=== PATIENT | female | born 1980 | race Caucasian/White ===

== ENCOUNTER 2016-11-06 15:16 | Emergency (ER) | payer OTHER ==
[~2016-11-06] VITALS: Ht 162.6 cm; Wt 95.3 kg
[2016-11-06] MEDS ORDERED: NORT1TAB PO (15:38)
[2016-11-06] MEDS ORDERED: GLAT1INJ SQ (15:38)
[2016-11-06] MEDS ORDERED: TRAM50TA2 PO (15:38)
[2016-11-06] MEDS ORDERED: ZOLP10TA2 PO (15:38)
[2016-11-06] MEDS ORDERED: GABA-282 PO (15:38)
[2016-11-06] MEDS ORDERED: HYDR25T PO (15:38)
[2016-11-06] MEDS ORDERED: GABA600T PO (15:38)
[2016-11-06] MEDS ORDERED: VALA500T PO (15:38)
[2016-11-06] MEDS ORDERED: CYAN1000VL SQ (15:38)
[2016-11-06] MEDS ORDERED: ROPI0.5T PO (15:38)
[2016-11-06] MEDS ORDERED: NS 1,000 ML IV ONE ×2 (15:45→16:45)
[2016-11-06] MEDS ORDERED: ONDANSETRON 4MG/2ML VIAL (J2405) IV ONE (15:45)
[2016-11-06 16:01] LABS: BASO % 0.5 % (0.0-1.0); EOS # 0.1 K/mm3 (0.0-0.50); EOS % 0.9 % (0.0-3.0); LARGE UNSTAINED CELL # 0.1 K/mm3 (0.0-0.4); LYMPH # 2.8 K/mm3 (1.5-4.5); LYMPH % 25.2 % (24.0-44.0); MEAN CORPUSCULAR HEMOGLOBIN 30.3 pg (27.0-33.0); MEAN CORPUSCULAR HGB CONC 32.9 g/dl (32.0-36.5); MEAN CORPUSCULAR VOLUME 92.3 fl (80.0-96.0); MONO # 0.4 K/mm3 (0.0-0.8); MONO % 3.9 % (0.0-5.0); NEUTROPHILS # 7.5 K/mm3 (1.8-7.7); NEUTROPHILS % 68.4 % (36.0-66.0); PLATELET COUNT, AUTOMATED 360 k/mm3 (150-450); RED CELL DISTRIBUTION WIDTH 12.7 % (11.5-14.5); WHITE BLOOD COUNT 10.9 K/mm3 (4.0-10.0)
[2016-11-06 16:21] LABS: ALBUMIN 3.9 GM/DL (3.2-5.2); ALBUMIN/GLOBULIN RATIO 0.91 (1.00-1.93); ALKALINE PHOSPHATASE 76 U/L (45-117); ALT/SGPT 18 U/L (12-78); ANION GAP 6 MEQ/L (8-16); AST/SGOT 20 U/L (15-37); BILIRUBIN,DIRECT < 0.1 MG/DL (0.0-0.2); BILIRUBIN,TOTAL 0.2 MG/DL (0.2-1.0); BLOOD UREA NITROGEN 8 MG/DL (7-18); CALCIUM LEVEL 8.9 MG/DL (8.5-10.1); CARBON DIOXIDE LEVEL 27 MEQ/L (21-32); CHLORIDE LEVEL 106 MEQ/L (98-107); CREATININE FOR GFR 0.76 MG/DL (0.55-1.02); GLOMERULAR FILTRATION RATE > 60.0 (>60); GLUCOSE, FASTING 86 MG/DL (70-105); POTASSIUM SERUM 3.7 MEQ/L (3.5-5.1); SODIUM LEVEL 139 MEQ/L (136-145); TOTAL PROTEIN 8.2 GM/DL (6.4-8.2)
[2016-11-06] MEDS ORDERED: ZOFR4TAB3 PO (16:57)
[2016-11-06] MEDS ORDERED: METOCLOPRAMIDE INJ 10MG/2ML VIAL (J2765) IV ONE (17:00)
[2016-11-06] MEDS ORDERED: FAMOTIDINE 20 MG TAB PO ONE (17:45)
[2016-11-06] MEDS ORDERED: SUCRALFATE SUSP 1GM/10ML UD PO ONE (17:45)
[2016-11-06 18:26] VITALS: BP 121/70
== END 2016-11-06 18:31 | disposition home or self-care (01) ==
LOC: M ED 16:28
DX: R11.2 Nausea with vomiting, unspecified (principal); R19.7 Diarrhea, unspecified; G35 Multiple sclerosis; F41.9 Anxiety disorder, unspecified; Z79.899 Other long term (current) drug therapy; Z79.891 Long term (current) use of opiate analgesic; F17.210 Nicotine dependence, cigarettes, uncomplicated
CPT/HCPCS: 80048; 80076; 83690; 85025; 96374; 96375; 99283; J2405; J2765

== ENCOUNTER → 2016-11-17 | Outpatient (REF) | payer OTHER ==
[~2016-11-17] MED LIST: CYAN1000VL SQ; GABA-282 PO; GABA600T PO; GLAT1INJ SQ; HYDR25T PO; NORT1TAB PO; ROPI0.5T PO; TRAM50TA2 PO; VALA500T PO; ZOFR4TAB3 PO; ZOLP10TA2 PO
== END ==
LOC: M LABNEURO 12:50
PROVIDERS: ATTEND Psychiatry & Neurology Neurology
DX: E55.9 Vitamin D deficiency, unspecified (principal)

== ENCOUNTER → 2016-12-21 | Outpatient (CLI) | payer OTHER ==
--- NOTE | 2016-12-21 13:53 | REP ---
Chest two views HISTORY: Cough Comparison: None The lungs are clear. The heart is normal in size. The pulmonary vasculature is normal in appearance. The bony structure is intact. IMPRESSION: No acute disease. Signed by Vickey Parada MD 12/21/2016 01:45 P
== END ==
LOC: M WUC 12:06
PROVIDERS: ATTEND Physician Assistant
DX: R05 Cough (principal)

== ENCOUNTER → 2017-02-18 | Outpatient (REF) | payer OTHER ==
[~2017-02-18] MED LIST changes: +DULO1CAP2; +FERR1TAB8; +HYDR-3363 PO; -HYDR25T PO; +LORA10TA2; -VALA500T PO; +VALA500T2 PO
== END ==
LOC: M LABNEURO 12:31
PROVIDERS: ATTEND Psychiatry & Neurology Neurology
DX: E55.9 Vitamin D deficiency, unspecified (principal); E53.8 Deficiency of other specified B group vitamins

== ENCOUNTER → 2017-03-10 | Outpatient (REF) | payer OTHER ==
[2017-03-10 17:19] LABS: VITAMIN B12 LEVEL 294 PG/ML (247-911)
[2017-03-10 17:23] LABS: ALBUMIN 3.5 GM/DL (3.2-5.2); ALBUMIN/GLOBULIN RATIO 1.03 (1.00-1.93); ALKALINE PHOSPHATASE 94 U/L (45-117); ALT/SGPT 21 U/L (12-78); ANION GAP 7 MEQ/L (8-16); AST/SGOT 25 U/L (15-37); BILIRUBIN,TOTAL 0.5 MG/DL (0.2-1.0); BLOOD UREA NITROGEN 8 MG/DL (7-18); CALCIUM LEVEL 8.5 MG/DL (8.5-10.1); CARBON DIOXIDE LEVEL 28 MEQ/L (21-32); CHLORIDE LEVEL 107 MEQ/L (98-107); CREATININE FOR GFR 0.72 MG/DL (0.55-1.02); FERRITIN 48 NG/ML (8-252); FREE T4 0.93 NG/DL (0.76-1.46); GLOMERULAR FILTRATION RATE > 60.0 (>60); GLUCOSE, FASTING 73 MG/DL (70-105); PERCENT SATURATION 15.4 % (13.2-45.0); POTASSIUM SERUM 4.4 MEQ/L (3.5-5.1); SODIUM LEVEL 142 MEQ/L (136-145); TOTAL IRON BINDING CAPACITY 409 UG/DL (250-450); TOTAL PROTEIN 6.9 GM/DL (6.4-8.2)
[2017-03-10 17:30] LABS: BASO % 0.4 % (0.0-1.0); EOS # 0.2 K/mm3 (0.0-0.50); EOS % 1.6 % (0.0-3.0); LARGE UNSTAINED CELL # 0.1 K/mm3 (0.0-0.4); LARGE UNSTAINED CELL % 1.3 % (0.0-4.0); LYMPH # 2.7 K/mm3 (1.5-4.5); LYMPH % 28.9 % (24.0-44.0); MEAN CORPUSCULAR HEMOGLOBIN 32.2 pg (27.0-33.0); MEAN CORPUSCULAR HGB CONC 33.8 g/dl (32.0-36.5); MEAN CORPUSCULAR VOLUME 95.1 fl (80.0-96.0); MONO # 0.4 K/mm3 (0.0-0.8); MONO % 4.6 % (0.0-5.0); NEUTROPHILS # 5.9 K/mm3 (1.8-7.7); NEUTROPHILS % 63.2 % (36.0-66.0); PLATELET COUNT, AUTOMATED 308 k/mm3 (150-450); RED CELL DISTRIBUTION WIDTH 12.8 % (11.5-14.5); WHITE BLOOD COUNT 9.4 K/mm3 (4.0-10.0)
== END ==
LOC: M SFHCSACK 08:39
PROVIDERS: ATTEND Physician Assistant
DX: D64.9 Anemia, unspecified (principal); Z83.3 Family history of diabetes mellitus; F41.1 Generalized anxiety disorder; E55.9 Vitamin D deficiency, unspecified

== ENCOUNTER → 2017-08-18 | Outpatient (REF) | payer OTHER ==
[2017-08-18 14:29] LABS: BASO # 0.1 10^3/uL (0.0-0.2); BASO % 0.8 % (0.0-1.0); EOS # 0.1 10^3/uL (0.0-0.50); EOS % 0.7 % (0.0-3.0); HEMATOCRIT 39.6 % (36.0-47.0); IMMATURE GRANULOCYTE % 0.2 % (0-0); LYMPH # 2.2 10^3/uL (1.5-4.5); LYMPH % 24.2 % (24.0-44.0); MEAN CORPUSCULAR HGB CONC 32.8 g/dl (32.0-36.5); MEAN CORPUSCULAR VOLUME 91.2 fl (80.0-96.0); MONO # 0.4 10^3/uL (0.0-0.8); MONO % 4.3 % (0.0-5.0); NEUTROPHILS # 6.5 10^3/uL (1.8-7.7); NEUTROPHILS % 69.8 % (36.0-66.0); PLATELET COUNT, AUTOMATED 329 10^3/uL (150-450); RED BLOOD COUNT 4.34 10^6/uL (4.00-5.40); RED CELL DISTRIBUTION WIDTH 13.7 % (11.5-14.5); WHITE BLOOD COUNT 9.2 10^3/uL (4.0-10.0)
[2017-08-18 14:42] LABS: ALBUMIN/GLOBULIN RATIO 1.14 (1.00-1.93); ALKALINE PHOSPHATASE 75 U/L (45-117); ALT/SGPT 16 U/L (12-78); ANION GAP 8 MEQ/L (8-16); AST/SGOT 24 U/L (7-37); BILIRUBIN,TOTAL 0.3 MG/DL (0.2-1.0); BLOOD UREA NITROGEN 12 MG/DL (7-18); CARBON DIOXIDE LEVEL 27 MEQ/L (21-32); CHLORIDE LEVEL 106 MEQ/L (98-107); CREATININE FOR GFR 0.75 MG/DL (0.55-1.30); GLOMERULAR FILTRATION RATE > 60.0 (>60); GLUCOSE, FASTING 104 MG/DL (70-100); POTASSIUM SERUM 4.3 MEQ/L (3.5-5.1); SODIUM LEVEL 141 MEQ/L (136-145); TOTAL 25(OH) VITAMIN D 19.7 NG/ML (30.0-100.0); TOTAL PROTEIN 7.5 GM/DL (6.4-8.2); VITAMIN B12 LEVEL 393 PG/ML (247-911)
[2017-08-18 14:49] LABS: ESTIMATED AVERAGE GLUCOSE 108 MG/DL (60-110); HEMOGLOBIN A1c 5.4 %
== END ==
LOC: M SFHCSACK 08:06
DX: D64.9 Anemia, unspecified (principal); Z83.3 Family history of diabetes mellitus; E55.9 Vitamin D deficiency, unspecified

== ENCOUNTER 2017-09-01 11:56 | Emergency (ER) | payer OTHER, MEDICAID ==
[2017-09-01] MEDS: ONDANSETRON 4MG/2ML VIAL (J2405) IV (13:26)
[2017-09-01] MEDS: MORPHINE 4 MG/ML 1ML VIAL (J2270) IV (13:27)
[2017-09-01 13:33] LABS: CONTROL LINE UCG INT CTR LINE PRESENT; URINE PREG TEST NEGATIVE (NEGATIVE)
[2017-09-01 13:50] LABS: KETONE, URINE AUTO RFX TRACE mg/dL (NEGATIVE); LEUKOCYTE ESTERASE UR AUTO RFX NEGATIVE (NEGATIVE); MUCUS, URINE RFX SMALL (NEGATIVE); NITRITE, URINE AUTO RFX NEGATIVE (NEGATIVE); RBC, URINE AUTO RFX 3 /HPF (0-3); SPECIFIC GRAVITY UR AUTO RFX 1.017 (1.002-1.035); SQUAM EPITHELIAL CELL UR AURFX 0 /HPF (0-6); WBC, URINE AUTO RFX 0 /HPF (0-3)
[2017-09-01] MEDS ORDERED: ISOVUE-370 76% 100ML VIAL (Q9967) As Ordered (15:23)
== END 2017-09-01 17:18 | disposition home or self-care (01) ==
LOC: M ED 11:56
DX: M62.08 Separation of muscle (nontraumatic), other site (principal); R05 Cough; J45.909 Unspecified asthma, uncomplicated; G35 Multiple sclerosis; Z79.899 Other long term (current) drug therapy; F17.210 Nicotine dependence, cigarettes, uncomplicated
CPT/HCPCS: J2270

== ENCOUNTER → 2018-03-10 | Outpatient (REF) | payer MEDICAID, OTHER | LOC: M SFHCSACK 08:24 | DX: D64.9 Anemia, unspecified (principal); G35 Multiple sclerosis; E55.9 Vitamin D deficiency, unspecified ==

== ENCOUNTER → 2018-06-29 | Outpatient (REF) | payer OTHER, MEDICAID | LOC: M SFHCSACK 14:43 | DX: J02.9 Acute pharyngitis, unspecified (principal) ==

== ENCOUNTER → 2018-10-28 | Outpatient (REF) | payer MEDICAID, OTHER ==
[~2018-10-28] MED LIST changes: +CHERSYP3 PO; +COMBAER6 INH; -DULO1CAP2; +DULO1CAP2 PO; -FERR1TAB8; +FERR1TAB8 PO; -GABA-282 PO; +GABA-843 PO; -GABA600T PO; +GABA600T4 PO; +LORA-243 PO; -LORA10TA2; +SING10TA32 PO; -VALA500T2 PO; +VALA500T5 PO; +ZOFR4TAB14 PO; -ZOFR4TAB3 PO
[2018-10-28 14:35] LABS: BASO # 0.1 10^3/uL (0.0-0.2); BASO % 0.9 % (0.0-1.0); EOS # 0.1 10^3/uL (0.0-0.50); EOS % 1.7 % (0.0-3.0); HEMATOCRIT 40.6 % (36.0-47.0); HEMOGLOBIN 13.7 g/dl (12.0-15.5); LYMPH # 2.8 10^3/uL (1.5-4.5); MEAN CORPUSCULAR HEMOGLOBIN 31.6 pg (27.0-33.0); MEAN CORPUSCULAR HGB CONC 33.7 g/dl (32.0-36.5); MEAN CORPUSCULAR VOLUME 93.8 fl (80.0-96.0); MONO # 0.6 10^3/uL (0.0-0.8); MONO % 8.2 % (0.0-5.0); NEUTROPHILS # 3.3 10^3/uL (1.8-7.7); NEUTROPHILS % 47.9 % (36.0-66.0); PLATELET COUNT, AUTOMATED 300 10^3/uL (150-450); RED BLOOD COUNT 4.33 10^6/uL (4.00-5.40); WHITE BLOOD COUNT 6.9 10^3/uL (4.0-10.0)
[2018-10-28 14:51] LABS: ALBUMIN 3.6 GM/DL (3.2-5.2); ALT/SGPT 17 U/L (12-78); BILIRUBIN,TOTAL 0.4 MG/DL (0.2-1.0); BLOOD UREA NITROGEN 14 MG/DL (7-18); CALCIUM LEVEL 8.7 MG/DL (8.5-10.1); CARBON DIOXIDE LEVEL 27 MEQ/L (21-32); CHLORIDE LEVEL 105 MEQ/L (98-107); CHOLESTEROL LEVEL 153 MG/DL (<200); FERRITIN 16 NG/ML (8-252); GLOMERULAR FILTRATION RATE > 60.0 (>60); GLUCOSE, FASTING 79 MG/DL (70-100); HDL CHOLESTEROL 45 MG/DL (>40); IRON (FE) 105 UG/DL (50-170); LDL CHOLESTEROL 92 MG/DL (<100); NON-HDL-C 108 MG/DL; PERCENT SATURATION 21.1 % (13.2-45.0); POTASSIUM SERUM 4.5 MEQ/L (3.5-5.1); SODIUM LEVEL 138 MEQ/L (136-145); TOTAL IRON BINDING CAPACITY 497 UG/DL (250-450); TOTAL PROTEIN 7.2 GM/DL (6.4-8.2); TRIGLYCERIDES LEVEL 82 MG/DL (<150)
== END ==
LOC: M SFHCSACK 09:41
PROVIDERS: ATTEND Family Medicine
DX: D64.9 Anemia, unspecified (principal); R73.09 Other abnormal glucose; Z13.29 Encounter for screening for other suspected endocrine disorder; Z13.220 Encounter for screening for lipoid disorders; E55.9 Vitamin D deficiency, unspecified

== ENCOUNTER 2018-11-17 10:47 | Emergency (ER) | payer MEDICAID, OTHER, SELFPAY ==
[~2018-11-17] VITALS: Ht 160 cm; Wt 93.2 kg
[2018-11-17] MEDS ORDERED: TIZA2TA (11:03)
[2018-11-17] MEDS ORDERED: methylPREDNISolone INJ 125 MG/2 ML VIAL (J2930) IV ONE (11:15)
[2018-11-17 11:44] LABS: BASO # 0.1 10^3/uL (0.0-0.2); BASO % 0.6 % (0.0-1.0); EOS # 0.1 10^3/uL (0.0-0.50); EOS % 0.8 % (0.0-3.0); HEMATOCRIT 39.2 % (36.0-47.0); HEMOGLOBIN 13.2 g/dl (12.0-15.5); LYMPH # 4.2 10^3/uL (1.5-4.5); MEAN CORPUSCULAR HEMOGLOBIN 30.8 pg (27.0-33.0); MEAN CORPUSCULAR HGB CONC 33.7 g/dl (32.0-36.5); MEAN CORPUSCULAR VOLUME 91.4 fl (80.0-96.0); MONO # 0.6 10^3/uL (0.0-0.8); MONO % 5.9 % (0.0-5.0); NEUTROPHILS # 5.3 10^3/uL (1.8-7.7); NEUTROPHILS % 51.5 % (36.0-66.0); PLATELET COUNT, AUTOMATED 345 10^3/uL (150-450); RED BLOOD COUNT 4.29 10^6/uL (4.00-5.40); WHITE BLOOD COUNT 10.3 10^3/uL (4.0-10.0)
[2018-11-17] MEDS ORDERED: methylPREDNISolone 1,000 MG, VIAL MATE ADAPTER 1 EACH in D5W 250 ML IV ONE (11:45)
[2018-11-17 12:07] LABS: BLOOD UREA NITROGEN 10 MG/DL (7-18); CALCIUM LEVEL 8.7 MG/DL (8.5-10.1); CARBON DIOXIDE LEVEL 29 MEQ/L (21-32); CHLORIDE LEVEL 104 MEQ/L (98-107); CREATININE FOR GFR 0.83 MG/DL (0.55-1.30); GLOMERULAR FILTRATION RATE > 60.0 (>60); GLUCOSE, FASTING 90 MG/DL (70-100); POTASSIUM SERUM 3.8 MEQ/L (3.5-5.1); SODIUM LEVEL 138 MEQ/L (136-145)
[2018-11-17 12:50] VITALS: BP 158/98
== END 2018-11-17 12:52 | disposition home or self-care (01) ==
LOC: M ED 10:47
DX: G35 Multiple sclerosis (principal); J45.909 Unspecified asthma, uncomplicated; F33.9 Major depressive disorder, recurrent, unspecified; F41.9 Anxiety disorder, unspecified; F17.210 Nicotine dependence, cigarettes, uncomplicated
CPT/HCPCS: 80048; 81001; 85025; 96365; 99284; J2930

== ENCOUNTER 2018-11-18 10:36 | Outpatient (CLI) | payer OTHER, SELFPAY ==
[~2018-11-18] VITALS: Ht 160 cm; Wt 93.1 kg
[~2018-11-18 10:36] MED LIST changes: +TIZA2TA
[2018-11-18 10:45] VITALS: BP 135/78
[2018-11-18] MEDS ORDERED: methylPREDNISolone 1,000 MG, VIAL MATE ADAPTER 1 EACH in D5W 250 ML IV ONE (11:00)
[2018-11-18 12:30] VITALS: BP 129/70
== END 2018-11-18 12:45 | disposition home or self-care (01) ==
LOC: M INFU 10:36
PROVIDERS: ATTEND Psychiatry & Neurology Neurology
DX: G35 Multiple sclerosis (principal)
CPT/HCPCS: 96365; J2930

== ENCOUNTER 2018-11-19 09:44 | Outpatient (CLI) | payer OTHER, SELFPAY ==
[2018-11-19 10:10] VITALS: BP 160/70
[2018-11-19] MEDS ORDERED: methylPREDNISolone 1,000 MG, VIAL MATE ADAPTER 1 EACH in D5W 250 ML IV ONE (10:30)
[2018-11-19 11:33] VITALS: BP 150/88
== END 2018-11-19 11:35 | disposition home or self-care (01) ==
LOC: M OPCLIPED 09:44 → M PED 10:00 → M OPCLIPED 11:35
PROVIDERS: ATTEND Psychiatry & Neurology Neurology
DX: G35 Multiple sclerosis (principal)
CPT/HCPCS: 96365; J2930

== ENCOUNTER 2018-11-20 09:42 | Outpatient (CLI) | payer OTHER, SELFPAY ==
[2018-11-20 10:00] VITALS: BP 145/84
[2018-11-20] MEDS ORDERED: methylPREDNISolone 1,000 MG, VIAL MATE ADAPTER 1 EACH in D5W 250 ML IV ONE (10:30)
[2018-11-20 11:20] VITALS: BP 145/90
== END 2018-11-20 11:20 | disposition home or self-care (01) ==
LOC: M OPCLIPED 09:42 → M PED 09:45 → M OPCLIPED 11:20
PROVIDERS: ATTEND Psychiatry & Neurology Neurology
DX: G35 Multiple sclerosis (principal)
CPT/HCPCS: 96365; J2930

== ENCOUNTER 2018-11-21 12:30 | Outpatient (CLI) | payer OTHER, SELFPAY ==
[~2018-11-21] VITALS: Ht 160 cm; Wt 93.0 kg
[2018-11-21 12:30] VITALS: BP 130/94
[~2018-11-21 12:30] MED LIST changes: +ERTAPENEM SODIUM 1 GM in NS MINI-BAG PLUS 50 ML IV SCH; +methylPREDNISolone 1,000 MG, VIAL MATE ADAPTER 1 EACH in D5W 250 ML IV ONE
[2018-11-21 14:00] VITALS: BP 129/85
== END 2018-11-21 14:00 | disposition home or self-care (01) ==
LOC: M INFU 12:30
PROVIDERS: ATTEND Psychiatry & Neurology Neurology
DX: G35 Multiple sclerosis (principal)
CPT/HCPCS: 96365; J2930

== ENCOUNTER → 2019-09-27 | Outpatient (REF) | payer OTHER, MEDICAID ==
[~2019-09-27] MED LIST changes: -DULO1CAP2 PO; +DULO1CAP5 PO; -ERTAPENEM SODIUM 1 GM in NS MINI-BAG PLUS 50 ML IV SCH; -ROPI0.5T PO; +ROPI0.5T3 PO; -methylPREDNISolone 1,000 MG, VIAL MATE ADAPTER 1 EACH in D5W 250 ML IV ONE
[2019-09-27 14:39] LABS: FREE T4 1.14 NG/DL (0.76-1.46)
[2019-09-27 14:41] LABS: FOLATE 18.9 NG/ML; VITAMIN B12 LEVEL > 2000 PG/ML
== END ==
LOC: M LABDRAW1 09:49
PROVIDERS: ATTEND Psychiatry & Neurology Neurology
DX: E07.9 Disorder of thyroid, unspecified (principal); E55.9 Vitamin D deficiency, unspecified

== ENCOUNTER → 2019-10-05 | Outpatient (CLI) | payer OTHER | LOC: M LABSMTC 11:08 | PROVIDERS: ATTEND Family Medicine | DX: Z11.59 Encounter for screening for other viral diseases (principal); B97.10 Unspecified enterovirus as the cause of diseases classified elsewhere ==

== ENCOUNTER → 2019-10-20 | Outpatient (REF) | payer OTHER, MEDICAID ==
[2019-10-20 11:53] LABS: BASO # 0.1 10^3/uL (0.0-0.2); EOS # 0.2 10^3/uL (0.0-0.5); EOS % 1.8 % (0.0-3.0); HEMATOCRIT 39.9 % (36.0-47.0); HEMOGLOBIN 13.2 g/dl (12.0-15.5); LYMPH # 2.8 10^3/uL (1.5-5.0); LYMPH % 32.5 % (24.0-44.0); MEAN CORPUSCULAR HEMOGLOBIN 31.2 pg (27.0-33.0); MEAN CORPUSCULAR HGB CONC 33.1 g/dl (32.0-36.5); MEAN CORPUSCULAR VOLUME 94.3 fl (80.0-96.0); MONO # 0.5 10^3/uL (0.0-0.8); MONO % 5.5 % (0.0-5.0); NEUTROPHILS # 5.1 10^3/uL (1.5-8.5); NEUTROPHILS % 58.7 % (36.0-66.0); PLATELET COUNT, AUTOMATED 356 10^3/uL (150-450); RED BLOOD COUNT 4.23 10^6/uL (4.00-5.40); WHITE BLOOD COUNT 8.7 10^3/uL (4.0-10.0)
[2019-10-20 12:29] LABS: FERRITIN 13 NG/ML (8-252); FREE T4 0.98 NG/DL (0.76-1.46); IRON (FE) 66 UG/DL (50-170); PERCENT SATURATION 13.4 % (13.2-45.0); TOTAL IRON BINDING CAPACITY 492 UG/DL (250-450); VITAMIN B12 LEVEL > 2000 PG/ML (247-911)
== END ==
LOC: M SFHCLERA 09:54
PROVIDERS: ATTEND Physician Assistant
DX: Z13.29 Encounter for screening for other suspected endocrine disorder (principal); D64.9 Anemia, unspecified; E55.9 Vitamin D deficiency, unspecified; E53.8 Deficiency of other specified B group vitamins

== ENCOUNTER → 2020-06-05 | Outpatient (REF) | payer OTHER, MEDICAID | LOC: M SFHCLERA 09:10 | PROVIDERS: ATTEND Nurse Practitioner Family | DX: R68.89 Other general symptoms and signs (principal) ==

== ENCOUNTER → 2021-01-17 | Outpatient (CLI) | payer OTHER, MEDICAID ==
[~2021-01-17] MED LIST changes: +GABA-282 PO; -GABA-843 PO
[2021-01-17 13:44] LABS: FOLATE 7.8 NG/ML; TOTAL 25(OH) VITAMIN D 38.8 NG/ML (30.0-100.0)
== END ==
LOC: M PLALAB 11:02
PROVIDERS: ATTEND Psychiatry & Neurology Neurology
DX: E53.8 Deficiency of other specified B group vitamins (principal); G35 Multiple sclerosis; E55.9 Vitamin D deficiency, unspecified

== ENCOUNTER → 2021-01-17 | Outpatient (CLI) | payer OTHER, MEDICAID ==
[2021-01-17 13:12] LABS: BASO # 0.1 10^3/uL (0.0-0.2); BASO % 0.5 % (0.0-1.0); EOS # 0.1 10^3/uL (0.0-0.5); EOS % 0.8 % (0.0-3.0); HEMATOCRIT 35.6 % (36.0-47.0); HEMOGLOBIN 11.8 g/dl (12.0-15.5); LYMPH # 2.6 10^3/uL (1.5-5.0); LYMPH % 27.7 % (24.0-44.0); MEAN CORPUSCULAR HEMOGLOBIN 31.1 pg (27.0-33.0); MEAN CORPUSCULAR HGB CONC 33.1 g/dl (32.0-36.5); MEAN CORPUSCULAR VOLUME 93.7 fl (80.0-96.0); MONO # 0.5 10^3/uL (0.0-0.8); MONO % 5.6 % (2.0-8.0); NEUTROPHILS # 6.2 10^3/uL (1.5-8.5); NEUTROPHILS % 65.2 % (36.0-66.0); PLATELET COUNT, AUTOMATED 276 10^3/uL (150-450); WHITE BLOOD COUNT 9.5 10^3/uL (4.0-10.0)
[2021-01-17 13:25] LABS: INR 0.87
[2021-01-17 13:36] LABS: ALBUMIN 3.6 GM/DL (3.2-5.2); ALT/SGPT 27 U/L (12-78); BILIRUBIN,TOTAL 0.3 MG/DL (0.2-1.0); BLOOD UREA NITROGEN 16 MG/DL (7-18); CARBON DIOXIDE LEVEL 27 MEQ/L (21-32); CHLORIDE LEVEL 107 MEQ/L (98-107); CHOLESTEROL LEVEL 154 MG/DL (<200); CHOLESTEROL RISK RATIO 4.162 (<5); CREATININE FOR GFR 0.71 MG/DL (0.55-1.30); FERRITIN 14 NG/ML (8-252); GLOMERULAR FILTRATION RATE > 60.0 (>60); GLUCOSE, FASTING 92 MG/DL (70-100); HDL CHOLESTEROL 37 MG/DL (>40); IRON (FE) 42 UG/DL (50-170); LDL CHOLESTEROL 94 MG/DL (<100); NON-HDL-C 117 MG/DL; PERCENT SATURATION 9.1 % (13.2-45.0); POTASSIUM SERUM 4.4 MEQ/L (3.5-5.1); SODIUM LEVEL 141 MEQ/L (136-145); TOTAL IRON BINDING CAPACITY 463 UG/DL (250-450); TOTAL PROTEIN 6.7 GM/DL (6.4-8.2); TRIGLYCERIDES LEVEL 117 MG/DL (<150)
[2021-01-17 13:45] LABS: TOTAL 25(OH) VITAMIN D 37.2 NG/ML (30.0-100.0); VITAMIN B12 LEVEL 1183 PG/ML (247-911)
== END ==
LOC: M PLALAB 10:58
PROVIDERS: ATTEND Family Medicine
DX: G35 Multiple sclerosis (principal); E55.9 Vitamin D deficiency, unspecified; T14.8XXA Other injury of unspecified body region, initial encounter; E53.8 Deficiency of other specified B group vitamins; D64.9 Anemia, unspecified

== ENCOUNTER 2021-01-29 14:08 | Outpatient (CLI) | payer OTHER ==
[~2021-01-29] VITALS: Ht 160 cm; Wt 95.4 kg
[2021-01-29 14:15] VITALS: BP 118/82
[2021-01-29] MEDS ORDERED: methylPREDNISolone 1,000 MG, VIAL MATE ADAPTER 1 EACH in NS 250 ML IV ONE (14:35)
[2021-01-29] MEDS ORDERED: SPIR1CAP INH (15:04)
[2021-01-29 16:10] VITALS: BP 139/72
== END 2021-01-29 16:10 | disposition home or self-care (01) ==
LOC: M INFU 14:08
PROVIDERS: ATTEND Psychiatry & Neurology Neurology
DX: G35 Multiple sclerosis (principal)
CPT/HCPCS: 96365; J2930

== ENCOUNTER 2021-01-30 15:39 | Outpatient (CLI) | payer OTHER ==
[~2021-01-30] VITALS: Ht 160 cm; Wt 95.4 kg
[~2021-01-30 15:39] MED LIST changes: +SPIR1CAP INH; +methylPREDNISolone 1,000 MG, VIAL MATE ADAPTER 1 EACH in NS 250 ML IV ONE
[2021-01-30 15:45] VITALS: BP 139/95
[2021-01-30 17:15] VITALS: BP 149/89
== END 2021-01-30 17:15 | disposition home or self-care (01) ==
LOC: M INFU 15:39
PROVIDERS: ATTEND Psychiatry & Neurology Neurology
DX: G35 Multiple sclerosis (principal)
CPT/HCPCS: 96365; J2930

== ENCOUNTER 2021-01-31 14:03 | Outpatient (CLI) | payer OTHER ==
[~2021-01-31] VITALS: Ht 160 cm; Wt 95.4 kg
[2021-01-31 14:40] VITALS: BP 131/89
[2021-01-31 15:45] VITALS: BP 142/70
== END 2021-01-31 15:45 | disposition home or self-care (01) ==
LOC: M INFU 14:03
PROVIDERS: ATTEND Psychiatry & Neurology Neurology
DX: G35 Multiple sclerosis (principal)
CPT/HCPCS: 96365; J2930

== ENCOUNTER 2021-02-01 09:54 | Outpatient (CLI) | payer OTHER ==
[~2021-02-01 09:54] MED LIST changes: -methylPREDNISolone 1,000 MG, VIAL MATE ADAPTER 1 EACH in NS 250 ML IV ONE
[2021-02-01 11:00] VITALS: BP 124/70
[2021-02-01] MEDS ORDERED: methylPREDNISolone 1,000 MG, VIAL MATE ADAPTER 1 EACH in NS 250 ML IV ONE (11:00)
== END 2021-02-01 12:15 | disposition home or self-care (01) ==
LOC: M INFU 09:54 → M MS5PR 09:58 → M INFU 12:15
PROVIDERS: ATTEND Psychiatry & Neurology Neurology
DX: G35 Multiple sclerosis (principal)
CPT/HCPCS: 96365; J2930

== ENCOUNTER 2021-02-02 09:40 | Outpatient (CLI) | payer OTHER ==
[2021-02-02 10:15] VITALS: BP 123/83
[2021-02-02] MEDS ORDERED: methylPREDNISolone 1,000 MG, VIAL MATE ADAPTER 1 EACH in NS 250 ML IV ONE (11:00)
[2021-02-02 12:19] VITALS: BP 129/90
== END 2021-02-02 12:30 | disposition home or self-care (01) ==
LOC: M INFU 09:40 → M MS5PR 09:43 → M INFU 12:30
PROVIDERS: ATTEND Psychiatry & Neurology Neurology
DX: G35 Multiple sclerosis (principal)
CPT/HCPCS: 96365; J2930

== ENCOUNTER → 2021-08-27 | Outpatient (REF) | payer OTHER ==
[2021-08-27 18:36] LABS: HEMATOCRIT 36.7 % (36.0-47.0); HEMOGLOBIN 11.9 g/dl (12.0-15.5); MEAN CORPUSCULAR HEMOGLOBIN 29.8 pg (27.0-33.0); MEAN CORPUSCULAR HGB CONC 32.4 g/dl (32.0-36.5); MEAN CORPUSCULAR VOLUME 91.8 fl (80.0-96.0); PLATELET COUNT, AUTOMATED 340 10^3/uL (150-450); WHITE BLOOD COUNT 11.5 10^3/uL (4.0-10.0)
[2021-08-27 19:32] LABS: HCG, SERUM QUANTITATIVE 4149 MIU/ML; HEPATITIS B SURFACE ANTIGEN NEGATIVE (NEGATIVE); HIV 1&2 SCREEN CENTAUR NEGATIVE (NEGATIVE)
== END ==
LOC: M LAB REF 16:09
PROVIDERS: ATTEND Obstetrics & Gynecology
DX: Z32.01 Encounter for pregnancy test, result positive (principal); Z3A.00 Weeks of gestation of pregnancy not specified

== ENCOUNTER → 2021-09-02 | Outpatient (REF) | payer MEDICAID, OTHER | LOC: M LAB REF 16:30 | PROVIDERS: ATTEND Obstetrics & Gynecology | DX: O20.0 Threatened abortion (principal) ==

== ENCOUNTER → 2022-03-17 | Outpatient (REF) | payer OTHER ==
[2022-03-17 17:37] LABS: HEMATOCRIT 37.8 % (36.0-47.0); HEMOGLOBIN 12.9 g/dl (12.0-15.5); MEAN CORPUSCULAR HEMOGLOBIN 31.9 pg (27.0-33.0); MEAN CORPUSCULAR HGB CONC 34.1 g/dl (32.0-36.5); MEAN CORPUSCULAR VOLUME 93.3 fl (80.0-96.0); PLATELET COUNT, AUTOMATED 216 10^3/uL (150-450); RED BLOOD COUNT 4.05 10^6/uL (4.00-5.40); WHITE BLOOD COUNT 10.9 10^3/uL (4.0-10.0)
[2022-03-17 20:27] LABS: HCG, SERUM QUANTITATIVE 110027 MIU/ML; HIV 1&2 SCREEN CENTAUR NEGATIVE (NEGATIVE)
== END ==
LOC: M LAB REF 17:05
PROVIDERS: ATTEND Obstetrics & Gynecology
DX: O36.80X0 Pregnancy with inconclusive fetal viability, not applicable or unspecified (principal); Z32.01 Encounter for pregnancy test, result positive

== ENCOUNTER → 2022-07-01 | Outpatient (CLI) | payer OTHER | LOC: M WHC 09:33 | PROVIDERS: ATTEND Obstetrics & Gynecology | DX: Z34.82 Encounter for supervision of other normal pregnancy, second trimester (principal); Z3A.23 23 weeks gestation of pregnancy ==

== ENCOUNTER → 2022-08-15 | Outpatient (CLI) | payer OTHER ==
[2022-08-15 11:00] LABS: HEMATOCRIT 30.6 % (36.0-47.0); HEMOGLOBIN 10.3 g/dl (12.0-15.5); MEAN CORPUSCULAR HEMOGLOBIN 31.5 pg (27.0-33.0); MEAN CORPUSCULAR HGB CONC 33.7 g/dl (32.0-36.5); MEAN CORPUSCULAR VOLUME 93.6 fl (80.0-96.0); PLATELET COUNT, AUTOMATED 269 10^3/uL (150-450); RED BLOOD COUNT 3.27 10^6/uL (4.00-5.40); WHITE BLOOD COUNT 15.5 10^3/uL (4.0-10.0)
== END ==
LOC: M LAB 09:37
PROVIDERS: ATTEND Obstetrics & Gynecology
DX: Z34.82 Encounter for supervision of other normal pregnancy, second trimester (principal)

== ENCOUNTER → 2022-08-25 | Outpatient (CLI) | payer OTHER | LOC: M LAB 07:11 | PROVIDERS: ATTEND Obstetrics & Gynecology | DX: O99.810 Abnormal glucose complicating pregnancy (principal); Z3A.00 Weeks of gestation of pregnancy not specified ==

== ENCOUNTER → 2022-08-25 | Outpatient (CLI) | payer OTHER ==
[2022-08-25 07:57] LABS: FOLATE 23.7 NG/ML (>5.4)
[2022-08-30 23:10] LABS: Methylmalonic Acid 85 nmol/L (0-378)
== END ==
LOC: M LAB 06:52
PROVIDERS: ATTEND Family Medicine
DX: E53.8 Deficiency of other specified B group vitamins (principal)

== ENCOUNTER 2022-09-28 15:44 | Outpatient (CLI) | payer OTHER ==
[~2022-09-28] VITALS: Ht 160 cm; Wt 104.8 kg
[2022-09-28] VITALS (7 sets, daily range): BP systolic 128–143; BP diastolic 73–85
[~2022-09-28 15:44] MED LIST changes: +MONT-5 PO; -SING10TA32 PO
[2022-09-28] MEDS ORDERED: ACET500P3 PO (16:24)
[2022-09-28] MEDS ORDERED: PRENTAB9 PO (16:24)
[2022-09-28] MEDS ORDERED: TUMS500C PO (16:27)
[2022-09-28] MEDS ORDERED: MIRA0.5T PO (16:27)
[2022-09-28] MEDS ORDERED: BETAMETHASONE SOLUSPAN 6MG/ML 5ML VIAL IM SCH (18:00)
[2022-09-28 21:18] LABS: TOTAL PROTEIN,RANDOM URINE 10.9 MG/DL (0.0-14.0)
[2022-09-28 21:23] LABS: CREATININE,RANDOM URINE 157.5 MG/DL
[2022-09-28 21:43] LABS: URIC ACID 5.8 MG/DL (3.1-7.8)
[2022-09-28 21:45] LABS: LDH LACTATE DEHYDROGENASE 156 U/L (120-246)
[2022-09-28 22:02] LABS: ALT/SGPT 19 U/L (7.0-40); AST/SGOT 29 U/L (<34); BILIRUBIN,TOTAL 0.3 MG/DL (0.3-1.2); CREATININE FOR GFR 0.48 MG/DL (0.55-1.30); GLOMERULAR FILTRATION RATE > 60.0 (>58)
[2022-09-29] MEDS ORDERED: ACET-897 PO (18:21)
[2022-09-29] MEDS ORDERED: TUMS500C PO (18:23)
== END 2022-09-28 22:19 | disposition home or self-care (01) ==
LOC: M LDO 15:44
PROVIDERS: ATTEND Advanced Practice Midwife
DX: O47.03 False labor before 37 completed weeks of gestation, third trimester (principal); O10.013 Pre-existing essential hypertension complicating pregnancy, third trimester; O09.513 Supervision of elderly primigravida, third trimester; O99.353 Diseases of the nervous system complicating pregnancy, third trimester; G35 Multiple sclerosis; Z3A.36 36 weeks gestation of pregnancy
CPT/HCPCS: 36415; 59025; 76815; 82247; 82565; 82570; 83615; 84156; 84450; 84460; 84550; 87081; 87186; 96372; G0463; J0702

== ENCOUNTER 2022-09-29 17:28 | Outpatient (CLI) | payer OTHER ==
[~2022-09-29] VITALS: Ht 160 cm; Wt 105.9 kg
[~2022-09-29 17:28] MED LIST changes: +ACET500P3 PO; +MIRA0.5T PO; +PRENTAB9 PO; +TUMS500C PO
[2022-09-29 18:02] VITALS: BP 146/86
[2022-09-29] MEDS ORDERED: HOME MED LIST COMPLETE! XX SCH (18:05)
[2022-09-29] MEDS ORDERED: ACET-897 PO (18:21)
[2022-09-29] MEDS ORDERED: TUMS500C PO (18:23)
[2022-09-29] MEDS ORDERED: BETAMETHASONE SOLUSPAN 6MG/ML 5ML VIAL IM ONE (18:30)
[2022-09-29] MEDS ORDERED: METOCLOPRAMIDE 10MG TAB PO ONE (19:10)
[2022-09-29] MEDS ORDERED: diphenhydrAMINE 25MG CAP PO ONE (19:10)
[2022-09-29 20:08] VITALS: BP 144/88
== END 2022-09-29 21:08 | disposition home or self-care (01) ==
LOC: M LDO 17:28
PROVIDERS: ATTEND Obstetrics & Gynecology
DX: O26.893 Other specified pregnancy related conditions, third trimester (principal); M25.551 Pain in right hip; O99.353 Diseases of the nervous system complicating pregnancy, third trimester; G35 Multiple sclerosis; Y92.9 Unspecified place or not applicable; Y93.9 Activity, unspecified; Y99.9 Unspecified external cause status; R51.0 Headache with orthostatic component, not elsewhere classified; O60.03 Preterm labor without delivery, third trimester; O09.513 Supervision of elderly primigravida, third trimester; Z3A.36 36 weeks gestation of pregnancy
CPT/HCPCS: 96372; G0463; J0702

== ENCOUNTER 2022-10-03 02:39 | Inpatient (IN) | payer OTHER ==
[~2022-10-03] VITALS: Ht 160 cm; Wt 107.3 kg
[2022-10-03] VITALS (24 sets, daily range): BP systolic 94–174; BP diastolic 55–99
[~2022-10-03 02:39] MED LIST changes: +ACET-897 PO
[2022-10-03] MEDS ORDERED: CARBOPROST TROMETHAMINE 250 MCG/ML AMP IM PRN (03:40)
[2022-10-03] MEDS ORDERED: OXYTOCIN DRIP 30 UNITS in IV 1 EA IV PRN (03:40)
[2022-10-03] MEDS ORDERED: LIDOCAINE 1% MDV 20ML VIAL INFIL PRN (03:40)
[2022-10-03] MEDS ORDERED: TRANEXAMIC ACID INJection 1,000 MG in NS 100 ML IV PRN (03:40)
[2022-10-03] MEDS ORDERED: PENICILLIN G POTASSIUM 5 MU IV 5 MU in D5W MINI-BAG PLUS 100 ML IV STA (03:40)
[2022-10-03 04:02] LABS: HEMOGLOBIN 10.6 g/dl (12.0-15.5); MEAN CORPUSCULAR HEMOGLOBIN 30.6 pg (27.0-33.0); MEAN CORPUSCULAR HGB CONC 34.2 g/dl (32.0-36.5); MEAN CORPUSCULAR VOLUME 89.6 fl (80.0-96.0); PLATELET COUNT, AUTOMATED 293 10^3/uL (150-450); RED BLOOD COUNT 3.46 10^6/uL (4.00-5.40); WHITE BLOOD COUNT 22.6 10^3/uL (4.0-10.0)
[2022-10-03] MEDS ORDERED: EPIDURAL/PCA KEYS XX PRN (05:20)
[2022-10-03] MEDS ORDERED: LR 500 ML IV PRN (05:20)
[2022-10-03] MEDS ORDERED: ONDANSETRON 4MG 2ML VIAL IV PRN (05:20)
[2022-10-03] MEDS ORDERED: NALOXONE INJ 0.4MG/1ML VIAL IV PRN (05:20)
[2022-10-03] MEDS ORDERED: FENTANYL/ROPIVACAINE/NACL BAG 100 ML EPIDURAL SCH (05:20)
[2022-10-03] MEDS ORDERED: ePHEDrine SULFATE 25 MG/5 ML(5MG/ML) SYRINGE IVP PRN (05:20)
[2022-10-03] MEDS ORDERED: diphenhydrAMINE 50MG/ML VIAL IV PRN (05:20)
[2022-10-03] MEDS ORDERED: DOCUSATE SODIUM 100MG CAPSULE PO PRN (07:10)
[2022-10-03] MEDS ORDERED: RHOGAM 300MCG (1500IU) INJ IM SCH (07:10)
[2022-10-03] MEDS ORDERED: ANUSOL HC CREAM 30GM TOP PRN (07:10)
[2022-10-03] MEDS ORDERED: DIBUCAINE 1% OINTMENT 30GM TOP PRN (07:10)
[2022-10-03] MEDS ORDERED: METHYLERGONOVINE MALEATE 0.2 MG TAB PO PRN (07:10)
[2022-10-03] MEDS ORDERED: SLF 3 ML SYR IV PRN (07:40)
[2022-10-03] MEDS ORDERED: PEN G POT 3,000,000 UNIT/50 ML 3,000,000 UNIT in IV 1 EA IV SCH (08:00)
[2022-10-03] MEDS: PRENATAL VITAMINS CHEWABLE TABLET PO SCH (09:02)
[2022-10-03] MEDS: IBUPROFEN 600MG TAB PO PRN ×2 (10:54→19:19)
[2022-10-03] MEDS: ACETAMINOPHEN 500 MG TAB PO PRN ×2 (13:15→21:00)
[2022-10-03] MEDS ORDERED: SLF 3 ML SYR IV SCH (14:00)
[2022-10-04 06:00] VITALS: BP 135/77
[2022-10-04] MEDS: PRENATAL VITAMINS CHEWABLE TABLET PO SCH (08:00)
[2022-10-04] MEDS: IBUPROFEN 600MG TAB PO PRN (12:01)
[2022-10-04] MEDS ORDERED: IBUP-1022 PO (16:10)
[2022-10-04] MEDS ORDERED: ACET-683 PO (16:10)
[2022-10-04] MEDS ORDERED: COLA100C5 PO (16:10)
[2022-10-05] MEDS ORDERED: MEASLES,MUMPS,RUBELLA VACCINE INJ (MMR-II) SC.IMMUN ONE (09:00)
== END 2022-10-04 19:13 | disposition home or self-care (01) | DRG 560 ==
LOC: M LDO 02:39 → M LDI 03:25 → M OBS 13:02
PROVIDERS: ADMIT Advanced Practice Midwife; ATTEND Advanced Practice Midwife
PROC: 10E0XZZ Delivery of Products of Conception, External Approach (ICD-10-PCS; principal; 2022-10-03)
PROC: 0HQ9XZZ Repair Perineum Skin, External Approach (ICD-10-PCS; 2022-10-03)
PROC: 0UQMXZZ Repair Vulva, External Approach (ICD-10-PCS; 2022-10-03)
DX: O99.824 Streptococcus B carrier state complicating childbirth (principal); O71.82 Other specified trauma to perineum and vulva; Z37.0 Single live birth; Z3A.37 37 weeks gestation of pregnancy; O70.0 First degree perineal laceration during delivery; Z79.899 Other long term (current) drug therapy

== ENCOUNTER → 2023-12-22 | Outpatient (REF) | payer BC ==
[~2023-12-22] MED LIST changes: +ACET-683 PO; +COLA100C5 PO; +IBUP-1022 PO; -ROPI0.5T3 PO; +ROPI0.5T33 PO
[2023-12-22 18:26] LABS: BASO # 0.1 10^3/uL (0.0-0.2); BASO % 0.7 % (0.0-1.0); EOS # 0.1 10^3/uL (0.0-0.5); EOS % 0.5 % (0.0-3.0); HEMATOCRIT 39.4 % (36.0-47.0); HEMOGLOBIN 13.1 g/dl (12.0-15.5); LYMPH # 3.8 10^3/uL (1.5-5.0); LYMPH % 35.8 % (24.0-44.0); MEAN CORPUSCULAR HEMOGLOBIN 30.6 pg (27.0-33.0); MEAN CORPUSCULAR HGB CONC 33.2 g/dl (32.0-36.5); MEAN CORPUSCULAR VOLUME 92.1 fl (80.0-96.0); MONO # 0.7 10^3/uL (0.0-0.8); MONO % 6.7 % (2.0-8.0); NEUTROPHILS % 55.9 % (36.0-66.0); PLATELET COUNT, AUTOMATED 297 10^3/uL (150-450); RED BLOOD COUNT 4.28 10^6/uL (4.00-5.40); WHITE BLOOD COUNT 10.7 10^3/uL (4.0-10.0)
[2023-12-22 18:43] LABS: HEMOGLOBIN A1c 5.2 % (4.0-6.0)
[2023-12-22 18:55] LABS: THYROID STIMULATING HORMONE 1.442 uIU/ML (0.55-4.78)
[2023-12-22 18:56] LABS: FOLATE 16.66 NG/ML (>5.4); TOTAL 25(OH) VITAMIN D 22.5 NG/ML (20.0-100.0)
[2023-12-22 18:57] LABS: FREE T4 0.89 NG/DL (0.89-1.76)
[2023-12-22 19:00] LABS: ALKALINE PHOSPHATASE 87 U/L (46-116); ALT/SGPT 11 U/L (7.0-40); AST/SGOT 13 U/L (<34); BILIRUBIN,TOTAL 0.3 MG/DL (0.3-1.2); BLOOD UREA NITROGEN 12 MG/DL (9-23); CALCIUM LEVEL 9.3 MG/DL (8.5-10.1); CARBON DIOXIDE LEVEL 26 MMOL/L (20-31); CHLORIDE LEVEL 107 MMOL/L (98-107); CHOLESTEROL LEVEL 145 MG/DL (<200); CHOLESTEROL RISK RATIO 3.59 (<5); CREATININE FOR GFR 0.74 MG/DL (0.55-1.30); GLOMERULAR FILTRATION RATE > 60.0 (>58); GLUCOSE, FASTING 87 MG/DL (60-100); HDL CHOLESTEROL 40.3 MG/DL (>40); LDL CHOLESTEROL 79.3 MG/DL (<100); NON-HDL-C 104.7 MG/DL; POTASSIUM SERUM 4.4 MMOL/L (3.5-5.1); SODIUM LEVEL 140 MMOL/L (136-145); TOTAL PROTEIN 6.9 G/DL (5.7-8.2); TRIGLYCERIDES LEVEL 127 MG/DL (<150); VITAMIN B12 LEVEL 321 PG/ML (211-911)
== END ==
LOC: M SFHCLERA 14:39
PROVIDERS: ATTEND Family Medicine
DX: R53.83 Other fatigue (principal)

== ENCOUNTER 2024-03-01 14:56 | Emergency (ER) | payer BC ==
[~2024-03-01] VITALS: Ht 162.6 cm; Wt 108.4 kg
[2024-03-01] MEDS ORDERED: PRAM2.252 PO (15:04)
[2024-03-01] MEDS ORDERED: LEXA1TAB PO (15:04)
[2024-03-01] MEDS ORDERED: CEPH500C PO (15:04)
[2024-03-01] MEDS: ACETAMINOPHEN 325 MG TAB PO ONE (16:58)
[2024-03-01] MEDS: IPRATROPIUM 0.5MG/ALBUTEROL 2.5MG INH SOL UD 3ML (DUONEB) NEB SCH (18:22)
[2024-03-01] MEDS: NS 1,000 ML IV ONE (18:27)
[2024-03-01] MEDS: DOXYCYCLINE HYCLATE 100MG TABLET PO ONE (18:27)
[2024-03-01] MEDS: cefTRIAXone SOD 1 GM in D5W MINI-BAG PLUS 50 ML IV ONE (18:27)
[2024-03-01 18:36] LABS: BASO # 0.1 10^3/uL (0.0-0.2); BASO % 0.5 % (0.0-1.0); EOS % 0.4 % (0.0-3.0); HEMATOCRIT 34.6 % (36.0-47.0); HEMOGLOBIN 11.5 g/dl (12.0-15.5); LYMPH # 1.6 10^3/uL (1.5-5.0); LYMPH % 15.5 % (24.0-44.0); MEAN CORPUSCULAR HGB CONC 33.2 g/dl (32.0-36.5); MEAN CORPUSCULAR VOLUME 90.3 fl (80.0-96.0); MONO # 0.8 10^3/uL (0.0-0.8); MONO % 7.3 % (2.0-8.0); NEUTROPHILS # 7.8 10^3/uL (1.5-8.5); NEUTROPHILS % 75.9 % (36.0-66.0); PLATELET COUNT, AUTOMATED 271 10^3/uL (150-450); RED BLOOD COUNT 3.83 10^6/uL (4.00-5.40); WHITE BLOOD COUNT 10.2 10^3/uL (4.0-10.0)
[2024-03-01 19:07] LABS: BLOOD UREA NITROGEN 12 MG/DL (9-23); CALCIUM LEVEL 8.8 MG/DL (8.5-10.1); CARBON DIOXIDE LEVEL 28 MMOL/L (20-31); CHLORIDE LEVEL 104 MMOL/L (98-107); CREATININE FOR GFR 0.72 MG/DL (0.55-1.30); GLOMERULAR FILTRATION RATE > 60.0 (>58); GLUCOSE, FASTING 103 MG/DL (60-100); POTASSIUM SERUM 4.3 MMOL/L (3.5-5.1); SODIUM LEVEL 136 MMOL/L (136-145)
[2024-03-01] MEDS: methylPREDNISolone 125MG 2ML VIAL IV ONE (19:51)
[2024-03-01 20:04] VITALS: BP 122/67; TEMP 97.9; O2SAT 93
[2024-03-01] MEDS ORDERED: DOXY-440 PO (20:06)
[2024-03-01] MEDS ORDERED: CEFD1CAP9 PO (20:06)
[2024-03-01] MEDS ORDERED: PRED20TA PO (20:06)
[2024-03-01] MEDS ORDERED: BENZ200C70 PO (20:06)
== END 2024-03-01 20:14 | disposition home or self-care (01) ==
LOC: M ED 14:56
DX: J45.901 Unspecified asthma with (acute) exacerbation (principal); J18.1 Lobar pneumonia, unspecified organism; F17.210 Nicotine dependence, cigarettes, uncomplicated; Z79.1 Long term (current) use of non-steroidal anti-inflammatories (NSAID); Z79.2 Long term (current) use of antibiotics; Z79.52 Long term (current) use of systemic steroids; Z79.899 Other long term (current) drug therapy
CPT/HCPCS: 71046; 80048; 83605; 85025; 87040; 87486; 87581; 87633; 87798; 94640; 96365; 96374; 99284; J0696; J2919

== ENCOUNTER → 2025-04-27 | Outpatient (CLI) | payer BC ==
[~2025-04-27] MED LIST changes: +BENZ200C70 PO; +CEFD1CAP9 PO; +CEPH500C PO; +DOXY-440 PO; +GABA-1172 PO; +GABA-1490 PO; -GABA-282 PO; -GABA600T4 PO; -IBUP-1022 PO; +IBUP600T42 PO; +LEXA1TAB PO; +PRAM2.252 PO; +PRED20TA PO; +ZOLP10TA11 PO; -ZOLP10TA2 PO
== END ==
LOC: M WUC 09:46
DX: M25.552 Pain in left hip (principal)